=== PATIENT | male | born 1960 | race Caucasian/White ===

== ENCOUNTER 2017-03-14 07:52 | Emergency (ER) | payer BC, MEDICARE ==
[2017-03-14 09:03] LABS: BASOPHILS 0.4 %; BASOPHILS ABSOLUTE 0.03 10/3/uL (0.0-0.16); EOSINOPHILS 3.4 %; EOSINOPHILS ABSOLUTE 0.28 10/3/uL (0.0-0.53); ER CBC TAT 0 Hrs 07 Mins; HEMATOCRIT 40.6 % (40.0-51.0); HEMOGLOBIN 14.4 g/dL (13.6-17.8); IMMATURE GRANULOCYTES 0.5 %; IMMATURE GRANULOCYTES ABSOLUTE 0.04 10/3/uL (0.0-0.11); LYMPHOCYTES 17.6 %; LYMPHOCYTES ABSOLUTE 1.47 10/3/uL (0.67-4.30); MEAN CORPUS HGB CONC 35.5 g/dL (32.0-36.0); MEAN CORPUSCULAR HEMOGLOB 32.6 pg (26.0-34.0); MEAN CORPUSCULAR VOLUME 91.9 fL (80-100); MEAN PLATELET VOLUME 9.9 fL (9.2-13.0); MONOCYTES 7.2 %; NEUTROPHILS 70.9 %; NEUTROPHILS ABSOLUTE 5.93 10/3/uL (2.02-8.40); PLATELET COUNT 156 10/3/uL (150-400); RED CELL COUNT 4.42 10/6/uL (4.7-6.1); WHITE BLOOD CELLS 8.4 10/3/uL (4.5-10.5)
[2017-03-14 09:04] LABS: MANUAL DIFF NO %
[2017-03-14 09:19] LABS: A/G RATIO 1.2 (0.7-1.9); ALBUMIN 3.8 G/DL (3.5-5.0); ALKALINE PHOSPHATASE 47 U/L (45-117); BUN (BLOOD UREA NITROGEN) 7 MG/DL (6-23); CHLORIDE, SERUM 108 MMOL/L (96-112); CO2 (CARBON DIOXIDE) 24 MMOL/L (24-34); CREATININE 0.91 MG/DL (0.70-1.30); GFR AFRICAN AMERICAN 110 ML/MIN (>=60); GFR NON AFRICAN AMERICAN 95 ML/MIN (>=60); GLOBULIN 3.3 G/DL (2.5-4.1); GLUCOSE, SERUM 102 MG/DL (60-99); POTASSIUM, SERUM 3.8 MMOL/L (3.5-5.3); SGOT(AST) 18 U/L (5-40); SGPT(ALT) 19 U/L (5-65); SODIUM, SERUM 140 MMOL/L (135-148); TOTAL PROTEIN 7.1 G/DL (6.0-8.5); TROPONIN I <0.02 NG/ML (<0.05)
[2017-03-15 07:12] LABS: ALLENS TEST Pos; BE (BASE EXCESS) -5.9 MEQ/L (0 +/- 2.5); HCO3 (ACTUAL BICARBONATE) 17.7 MEQ/L (23-27); HEMOBLOGIN CONTENT 14.6 G/DL (14-18); INSTRUMENT SERIAL # 8087; METHEMOGLOBIN 0.2 % (0-3); O2 CONTENT 19.7 VOL% (18-24); OPERATOR ID 14335; PCO2 (CO2 TENSION) 30 MMHG (35-45); PO2 (O2 TENSION) 95 MMHG (79-93); SAMPLE Arterial; pH 7.39 (7.37-7.43)
== END 2017-03-14 10:43 | disposition home or self-care (01) ==
LOC: ER 07:52
PROVIDERS: Nurse Practitioner Acute Care
DX: J18.9 Pneumonia, unspecified organism (principal); J44.9 Chronic obstructive pulmonary disease, unspecified; I25.2 Old myocardial infarction; I10 Essential (primary) hypertension; Z95.5 Presence of coronary angioplasty implant and graft; Z90.89 Acquired absence of other organs
CPT/HCPCS: 36600; 71010; 80053; 82805; 84484; 85025; 87040; 87070; 87205; 94640; 96374; 99285; A9270-GY; J2930